=== PATIENT | female | born 2000 | race African-American/Black ===

== ENCOUNTER 2022-10-23 09:27 | Emergency (ER) | payer MEDICAID, OTHER, SELFPAY | END 2022-10-23 12:03 | disposition home or self-care (01) | LOC: CSHERS 09:27 | DX: J06.9 Acute upper respiratory infection, unspecified (principal); R19.7 Diarrhea, unspecified | CPT/HCPCS: 99283 ==

== ENCOUNTER 2022-11-29 11:17 | Emergency (ER) | payer OTHER ==
[2022-11-29] MEDS ORDERED: Dicyclomine 20 MG/2 ML VIAL ONE (14:03)
== END 2022-11-29 14:13 | disposition home or self-care (01) ==
LOC: CSHERS 11:17
DX: R19.7 Diarrhea, unspecified (principal); R11.2 Nausea with vomiting, unspecified; R50.9 Fever, unspecified; Z20.822 Contact with and (suspected) exposure to COVID-19
CPT/HCPCS: 87804; 99284; U0003; U0005